=== PATIENT | male | born 1985 | race Two or more races ===

== ENCOUNTER 2016-02-17 17:38 | Emergency (ER) | payer OTHER ==
--- NOTE | 2016-02-17 18:15 | ER Document Report ---
ED Fall - General Chief Complaint: Fall Stated Complaint: FALL/HIP PAIN Time seen by provider: 18:13 Mode of Arrival: Stretcher Information source: Patient - HPI Patient complains to provider of: fall from height Occurred: Just prior to arrival Where: Outdoors Context: Fell from height Associated symptoms: Difficulty walking Location of injury/pain: Hip, Wrist Quality of pain: Achy Severity: Moderate Pain Level: 3 Notes: Patient is a 30-year-old male presenting to the emergency room complaining of right wrist and right hip pain after fall from ladder, states he was approximately 8 feet up on the ladder when the ladder slipped, causing him to land on his buttocks, he denies a head injury or loss of consciousness, no numbness or tingling to extremities, no bowel or bladder dysfunction Past Medical History - General Information source: Patient - Social History Smoking Status: Current Some Day Smoker Family History: Reviewed & Not Pertinent - Immunizations Hx Diphtheria, Pertussis, Tetanus Vaccination: No Review of Systems - Review of Systems Constitutional: No symptoms reported EENT: No symptoms reported Cardiovascular: No symptoms reported Respiratory: No symptoms reported Gastrointestinal: No symptoms reported Genitourinary: No symptoms reported Male Genitourinary: No symptoms reported Musculoskeletal: See HPI Skin: No symptoms reported Hematologic/Lymphatic: No symptoms reported Neurological/Psychological: No symptoms reported -: Yes All other systems reviewed and negative Physical Exam - Vital signs Interpretation: Normal - General General appearance: Appears well, Alert - HEENT Head: Normocephalic, Atraumatic Eyes: Normal Pupils: PERRL - Respiratory Respiratory status: No respiratory distress Chest status: Nontender Breath sounds: Normal Chest palpation: Normal - Cardiovascular Rhythm: Regular Heart sounds: Normal auscultation Murmur: No - Abdominal Inspection: Normal Distension: No distension Bowel sounds: Normal Tenderness: Nontender Organomegaly: No organomegaly - Back Back: Normal, Nontender - Extremities General upper extremity: Nontender, Normal color, Normal ROM, Normal temperature General lower extremity: Normal color, Normal temperature. No: Brook's sign Wrist: Tender - Tender to palpate over distal radius of the right upper extremity, distal sensation and motor is intact, 2+ radial pulses Thigh: Tender - Tender to palpate over greater trochanter of the left lower extremity, impaired range of motion due to pain, distal sensation and motor is intact - Neurological Neuro grossly intact: Yes Cognition: Normal Orientation: AAOx4 [place] Coma Scale Eye Opening: Spontaneous [place] Coma Scale Verbal: Oriented [place] Coma Scale Motor: Obeys Commands [place] Coma Scale Total: 15 Speech: Normal Motor strength normal: LUE, RUE, LLE, RLE Sensory: Normal - Psychological Associated symptoms: Normal affect, Normal mood - Skin Skin Temperature: Warm Skin Moisture: Dry Skin Color: Normal Course - Re-evaluation Re-evalutation: 02/17/16 19:43 Imaging findings were discussed with patient at bedside, he was given a copy of his imaging for follow-up as he lives outside of the [place] area, he was advised to rest, ice and elevate, take pain medication as prescribed, follow up with an orthopedist in the next 2-3 days or return if symptoms worsen, patient was provided with an Deandre wrap for his right wrist and crutches to assist with ambulation, patient acknowledges understanding and agreement with this plan - Diagnostic Test Radiology reviewed: Image reviewed, Reports reviewed Procedures - Immobilization Right Wrist Time completed: 19:44 Pre-Proc Neuro Vasc Exam: Normal Immobilizer type: Deandre wrap Performed by: PCT Post-Proc Neuro Vasc Exam: Normal Alignment checked and good: Yes Discharge - Discharge Clinical Impression: Inferior pubic ramus fracture Qualifiers: Encounter type: initial encounter Fracture type: closed Laterality: right Qualified Code(s): S32.591A - Other specified fracture of right pubis, initial encounter for closed fracture Wrist sprain Qualifiers: Encounter type: initial encounter Laterality: right Qualified Code(s): S63.501A - Unspecified sprain of right wrist, initial encounter Condition: Stable Disposition: HOME, SELF-CARE Instructions: Pelvic Fracture ([facility]), Oral Narcotic Medication ([facility]) Additional Instructions: Follow up with your primary care provider and an orthopedic surgeon in one to 2 days. Return to the emergency room immediately if symptoms worsen or any additional concerns. Ice and elevate the affected extremity. Limit weightbearing. Prescriptions: Oxycodone HCl/Acetaminophen [Percocet 5-325 mg Tablet] 1 - 2 tab PO ASDIR PRN # 20 tablet PRN Reason: Forms: Return to Work Referrals: MARITA AG, [ACTIVE STAFF] - Follow up as needed
[2016-02-17 19:32] LABS: APPEARANCE,URINE CLEAR; BILIRUBIN,URINE NEGATIVE (NEGATIVE); GLUCOSE, URINE NEGATIVE (NEGATIVE); KETONES,URINE NEGATIVE (NEGATIVE); LEUKOCYTE ESTERASE,URINE NEGATIVE (NEGATIVE); NITRITE,URINE NEGATIVE (NEGATIVE); PROTEIN,URINE NEGATIVE (NEGATIVE); URINE SPECIFIC GRAVITY 1.021; UROBILINOGEN,URINE NEGATIVE mg/dL (<2.0)
[2016-02-17] MEDS ORDERED: HYDROCODONE/ACETAMINOPHEN 5-325 MG 6 TAB/DSPK PO PRN (19:43)
[2016-02-17 19:49] LABS: URINE BARBITURATES SCREEN NEGATIVE; URINE METHADONE SCREEN NEGATIVE; URINE PHENCYCLIDINE SCREEN NEGATIVE
[2016-02-17 20:49] VITALS: BP 124/72
== END 2016-02-17 20:47 | disposition home or self-care (01) ==
LOC: ER 17:38
DX: S63.501A Unspecified sprain of right wrist, initial encounter (principal); S32.591A Other specified fracture of right pubis, initial encounter for closed fracture; M25.551 Pain in right hip; W11.XXXA Fall on and from ladder, initial encounter; F17.200 Nicotine dependence, unspecified, uncomplicated
CPT/HCPCS: 80307; 81001; 99283